=== PATIENT | female | born 1945 | race Caucasian/White ===

== ENCOUNTER 2016-08-20 17:28 | Inpatient (IN) | payer MEDICARE ==
--- NOTE | ~2016-08-20 | CN ---
Consultation Report [facility] [address] [place]. [address] NAME: DELISA BRANDT : 43 STATUS : ADM IN PAT#: [id number] AGE: 70 ADM/REG DATE : 08/20/16 MR#: [id number] REPORT SERV DATE: 08/23/16 DICTATED BY: DEWEY ELISE DATE: 08/23/16 REPORT STATUS : Draft TRANSCRIBED BY: MODLucía DATE: 08/23/16 DATE OF CONSULTATION: 08/23/2016 CHIEF COMPLAINT: Shortness of breath and left chest discomfort in a patient with a probable left parapneumonic pleural effusion. HISTORY OF PRESENT ILLNESS: Ms. Delisa Brandt is a very pleasant 70-year-old white female with a past medical history significant for previous sympathetic right-sided pleural effusion, hypertension, and chronic kidney disease, who presents to [facility]'s emergency room with complaints of worsening shortness of breath. It should be noted that Ms. Brandt has not been hospitalized recently and is usually in fairly good health. Ms. Brandt is not currently followed by a program planner. She did not usually require any supplemental oxygen. She has been recently prescribed an inhaler, but prior to this time, she was not on any pulmonary medications. She describes herself as a never smoker. She largely denies symptomatology consistent with obstructive sleep apnea. She describes her exercise tolerance prior to this recent illness as being excellent, being able to walk a city block before experiencing significant shortness of breath. Ms. Brandt states that she began feeling ill approximately two weeks ago. This manifested as shortness of breath, some wheezing, as well as a nonproductive cough. She eventually presented to her primary care physician, who provided her with a short course of antibiotics, prednisone, and an inhaler. She had some improvement in her wheezing, however, her shortness of breath persisted to such an extent that she presented to [facility]'s emergency room. Upon arrival in our emergency room, she was found to have a systolic blood pressure of 146, her temperature was 98.7, heart rate was 144, her oxygenation was 92% on 2 L. Echocardiogram was performed, which was suggestive of atrial fibrillation. She did undergo a chest x-ray, which revealed some vascular congestion as well. She has some atelectatic changes or consolidation in the left lung base. She had followup imaging, which suggested increasing effusion on the left. She also underwent an echocardiogram, which showed preserved left ventricular function, although some mbhh-ub-kvsbukyv regurg. The patient has largely improved, however, she does have an increasing effusion on the left. For the aforementioned reasons, she has been referred to the Pulmonary Service for further assessment. Currently, the patient is on room air and is largely asymptomatic at rest. She does continue to have some dyspnea with ambulation. She denies any wheezing or productive cough. She has had pneumonia once in the past. She denies any previous history of intrinsic lung disease. The patient does have a history of hypertension and dyslipidemia. She does have new-onset atrial fibrillation. She currently denies any murmurs, angina, or palpitations. She states that she did have some mild nonpitting edema prior to her presentation to the emergency Consultation Report [address] [address] NAME: DELISA BRANDT : 44 STATUS : ADM IN [facility]#: [id number] AGE: 70 ADM/REG DATE : 08/20/16 MR#: [id number] REPORT SERV DATE: 08/23/16 DICTATED BY: DEWEY ELISE DATE: 08/23/16 REPORT STATUS : Draft TRANSCRIBED BY: RUBIA DATE: 08/23/16 room. The patient states that she did have fever approximately a week ago measured as high as 101. She currently denies any rigors. She has had no nausea, vomiting, or abdominal pain. PAST MEDICAL HISTORY: 1. Exudative right pleural effusion. 2. Atrial fibrillation. 3. Hypertension. 4. Chronic kidney disease. 5. Hypothyroid, is on replacement therapy. 6. Osteoarthritis. 7. Dyslipidemia. 8. Depression. PAST SURGICAL HISTORY: 1. Cholecystectomy. 2. Total abdominal hysterectomy. 3. Bilateral total knee replacements. 4. Appendectomy. 5. ORIF of the right ankle. FAMILY HISTORY: The patient denies family history of lung disease. SOCIAL HISTORY: The patient is , with her of 50 years at bedside. They have two children who are in good health. She previously worked as a school operations manager. She states she may have had asbestos exposures in the workplace as well as in her home. She has no birds or exotic pets within the home. She knows of no issues with mold in the home. TOBACCO/ALCOHOL: As previously mentioned, Ms. Brandt is a never smoker. She has rare occasional glass of wine. MEDICATIONS: 1. Albuterol MDI. 2. Amlodipine 10 mg. 3. Aspirin 81 mg. 4. Atorvastatin 20 mg. 5. Duloxetine 60 mg. 6. Levothyroxine 88 mcg. 7. Melatonin 3 mg. ALLERGIES: THE PATIENT HAS A KNOWN ALLERGY TO PENICILLIN AND CIPROFLOXACIN, WHICH PRODUCE HIVES. REVIEW OF SYSTEMS: Consultation Report [address] [address] NAME: DELIAS BRANDT : 44 STATUS : ADM IN PAT#: [id number] AGE: 70 ADM/REG DATE : 08/20/16 MR#: [id number] REPORT SERV DATE: 08/23/16 DICTATED BY: DEWEY ELISE DATE: 08/23/16 REPORT STATUS : Draft TRANSCRIBED BY: RUBIA DATE: 08/23/16 Complete review of systems was performed with pertinent positives and negatives contained within the body of the HPI. PHYSICAL EXAMINATION: VITAL SIGNS: Blood pressure is 128/58, heart rate is 108, T-max is 96.9, respiratory rate is 16, SpO2 is 92% on room air. GENERAL: Ms. Delisa Brandt is a morbidly obese 70-year-old white female, who is not currently exhibiting any signs of acute distress. SKIN: With appropriate texture and turgor. No rashes, lesions, or ulcers. HEENT: Head, skull is normocephalic and atraumatic. Eyes, sclerae are anicteric. Ears, tragus without pain to palpation. Hearing is slightly diminished. Nose, bilateral nasal patency. Throat, the patient has dentition in good repair. NECK: Supple. Trachea midline. No cervical lymphadenopathy. THORAX/LUNGS: Thorax is symmetric with equal chest rise. Breath sounds are audible through entire field, diminished in the left lower base. CARDIOVASCULAR: Irregular rate and rhythm. No murmurs, rubs, or gallops. ABDOMEN: Soft, nondistended, and nontender. PERIPHERAL VASCULAR: No edema. MUSCULOSKELETAL: Full AROM and PROM in all joints. NEUROLOGIC: Cranial nerves 2 through 12 are grossly intact. PSYCHIATRIC: The patient demonstrates good judgment and insight. The patient is alert and oriented x3. ACCESSORY DATA: Reveals a creatinine of 1.25, procalcitonin 0.11. Urine antigens for Strep and Legionella are negative. Blood cultures negative to date. White blood cell count is 11,900, hemoglobin and hematocrit are 12.1 and 37.5. A lateral decubitus shows a seemingly free-flowing left greater than right pleural effusion. Echocardiogram reveals a left ventricular ejection fraction of 60% as well as moderate mitral regurg. IMPRESSION: 1. Community-acquired pneumonia. 2. Parapneumonic effusion. 3. New-onset atrial fibrillation. 4. Moderate mitral regurgitation. 5. Hypertension. PLAN: 1. At this time, the patient has been placed on appropriate antibiotic coverage and is clinically improving. 2. In regard to the patient's probable parapneumonic effusion, this is seemingly free flowing on chest x-ray. It may be reasonable to pursue thoracentesis for diagnostic purposes. We will refer her to our colleagues in Interventional Radiology for sampling of this fluid. We will send for the appropriate studies. The aforementioned impression and plan have been discussed with Dr. Alcala who will follow Consultation Report [address] [address] NAME: DELISA BRANDT : 44 STATUS : ADM IN PAT#: [id number] AGE: 70 ADM/REG DATE : 08/20/16 MR#: [id number] REPORT SERV DATE: 08/23/16 DICTATED BY: DEWEY ELISE DATE: 08/23/16 REPORT STATUS : Draft TRANSCRIBED BY: RUBIA DATE: 08/23/16 further recommendations. We thank you for this consult and look forward to participating in the care of Ms. Delisa Brandt. GBS/MODL Dewey Elise PA-C / [id number] CC: Vandana Dela Cruz M.D.
--- NOTE | ~2016-08-20 | ECH ---
Echocardiogram [address] [place]. [address] NAME: MIQUEL BRANDT : 44 STATUS : ADM IN PAT#: [id number] AGE: 70 ADM/REG DATE : 08/20/16 MR#: [id number] REPORT SERV DATE: 08/22/16 DICTATED BY: SHAYNA CORTEZ JR. DATE: 08/21/16 REPORT STATUS : Draft TRANSCRIBED BY: MODL DATE: 08/21/16 DATE OF ACQUISITION: 08/21/2016 ORDERING: Dr. Dixon. INDICATIONS: Tachycardia, sepsis, arrhythmia, evaluation of ejection fraction. TECH: Jamir Aniket is the RDCS. 2-D INTERPRETATION: M-mode and 2-dimensional echocardiography were performed. The left atrium was dilated 4.6 cm compared to an aortic root diameter of 3.3 cm. The left ventricle is normal in size measuring 5.2 cm in end-diastole and 3 cm in end-systole. Overall, there appeared to be normal left ventricular systolic function without obvious segmental wall motion abnormalities with ejection fraction of approximately 60%. The aortic valve was trileaflet and sclerotic. The mitral valve appeared to be minimally sclerotic. The remaining cardiac valves appeared to be structurally normal. No obvious intracardiac mass could be identified. The right ventricle did not appear to be particularly dilated. There was a trace pericardial effusion without echocardiographic evidence of hemodynamic compromise. A left pleural effusion was noted. DOPPLER/COLOR FLOW: Conventional and Doppler color flow imaging were performed. Mitral inflow patterns suggested absence of an A-wave as the patient was in atrial fibrillation. Diminished left ventricular compliance for the patient's age is suggested there was a concentric jet of sjna-at-oyfypewn mitral insufficiency. There was no significant tricuspid insufficiency. Peak gradient across the aortic valve measured 6 mmHg. There is no aortic insufficiency. CONCLUSION: NORMAL LEFT VENTRICULAR SYSTOLIC FUNCTION WITH DIMINISHED LEFT VENTRICULAR COMPLIANCE FOR THE PATIENT'S AGE. MINIMAL AORTIC VALVE SCLEROSIS WITHOUT STENOSIS. MODERATE MITRAL VALVULAR INSUFFICIENCY. TRICUSPID INSUFFICIENCY IS TRACED TO MILD, BUT THERE IS NO EVIDENCE OF PULMONARY HYPERTENSION. TRACE PERICARDIAL EFFUSION IS NOTED WHICH IS NOT HEMODYNAMICALLY SIGNIFICANT. LEFT PLEURAL EFFUSION IS VISUALIZED. /RUBIA Shayna Cortez Jr., M.D. / [id number] CC: Vandana Dela Cruz M.D.
--- NOTE | ~2016-08-20 | HP ---
History And Physical [place] [id number] [facility] [place]. [address] NAME: MIQUEL BRANDT : 43 STATUS : ADM IN [facility]#: [id number] AGE: 70 ADM/REG DATE : 08/20/16 MR#: [id number] REPORT SERV DATE: 08/20/16 DICTATED BY: MATTY BLISS DATE: 08/20/16 REPORT STATUS : Draft TRANSCRIBED BY: MODL DATE: 08/20/16 DATE OF ADMISSION: 08/20/2016 CHIEF COMPLAINT: A 70-year-old female presenting with cough, shortness of breath, rapid atrial fibrillation. HISTORY OF PRESENT ILLNESS: The patient's history was obtained through careful interview with the patient and her coupled with review of [facility] medical records. About 12 days ago, the patient was visiting her grandchildren in [place]. She went to see some recitals and concerts by her grandchildren and while spending time there, began to develop neck pain, chest pain on the lateral aspect of her right chest with a headache. She actually was worried about an atypical presentation of heart disease and went to an emergency department in [place], [place]. They did an EKG, chest x-ray, and lab work, and she was told that all this was "normal". But about 10 days ago, shortly after this episode, she noticed that she had increasing shortness of breath characterized by a prominent wheeze and a nonproductive cough. She also began to develop subjective fevers and chills. By the time she returned home on 08/15/2016, she was feeling extremely short of breath with any kind of exertion. She states "it is like someone pouring a pack of concrete at my lungs." So, she went to see her primary care physician on 08/15/2016, was told she had an upper respiratory infection, and was placed on a Z-Jamil inhaler, prednisone. She noticed that her wheeze improved, but she continued to have worsening shortness of breath. She describes slight orthopnea. No paroxysmal nocturnal dyspnea. No lower extremity edema or abdominal swelling. On the day of admission, she had such an extreme dyspnea on exertion that she was concerned about her own life, so she decided to come into the hospital. No nausea, vomiting. No lightheadedness, no palpitations, no confusion, no diarrhea or change in bowel or bladder habit. No rash, no sore throat. She does have occasional chest discomfort, described as a heaviness across the middle of her chest, 8/10 severity, exacerbated by exertion. REVIEW OF SYSTEMS: Otherwise, a 14-point review of systems was obtained, was negative. PAST MEDICAL HISTORY: 1. Chronic kidney disease. 2. Hypertension. 3. Depression. History And Physical [address] [address] NAME: MIQUEL BRANDT : 43 STATUS : ADM IN [facility]#: [id number] AGE: 70 ADM/REG DATE : 08/20/16 MR#: [id number] REPORT SERV DATE: 08/20/16 DICTATED BY: MATTY BLISS DATE: 08/20/16 REPORT STATUS : Draft TRANSCRIBED BY: RUBIA DATE: 08/20/16 4. Hypothyroidism. 5. Thoracentesis for pleural effusion. 6. Gallstone pancreatitis. 7. COPD. 8. Possible coronary artery disease with coronary artery plaque seen on CT scan, followed by Dr. Cortez. PAST SURGICAL HISTORY: 1. Left knee surgery. 2. Right ankle surgery. 3. Cholecystectomy. 4. Hysterectomy. 5. Appendectomy. ALLERGIES: PENICILLIN AND CIPRO. SOCIAL HISTORY: The patient has never smoked, has not had significant secondhand tobacco exposure either. She lives in [place], [place] with her . She drinks rare wine. They have two children; one child lives in [place], another in [place]. A total of six grandchildren. 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 FAMILY HISTORY: Diabetes. Father of a heart attack. CURRENT MEDICATIONS: Include albuterol inhaler, Norvasc 10 mg p.o. daily, aspirin 81 mg p.o. daily, Lipitor 20 mg p.o. daily, Z-Jamil, calcium and vitamin D, vitamin B12, Cymbalta 60 mg p.o. daily, levothyroxine 88 mcg p.o. daily, magnesium 400 mg p.o. daily, melatonin 3 mg p.o. at bedtime. PHYSICAL EXAMINATION: VITAL SIGNS: Temperature 98.7, pulse 144, blood pressure 146/90, respiratory rate 24, O2 saturation 92% on 2 L nasal cannula, 86% on room air. GENERAL: An ill-appearing female, in evidence of some distress secondary to shortness of breath. HEENT: Pupils equal, round, and reactive to light. No conjunctival pallor. No scleral icterus. Nares are patent. Oropharynx is clear of obstruction. Moist mucous membranes. NECK: Trachea midline. No thyromegaly. LYMPH: No cervical lymphadenopathy. No supraclavicular lymphadenopathy. RESPIRATORY: The patient has wet rales at the base of lungs but also some diminished breath sounds at the base of lungs. No dullness to percussion to suggest effusion. I do appreciate a slight egophony at the base of lungs bilaterally. No active wheezes. The patient has a labored respiratory effort. CARDIOVASCULAR: Tachycardic irregularly irregular. No murmurs, rubs, or gallops. No current extremity edema is appreciated. ABDOMEN: Soft, nontender, nondistended. Normal bowel sounds auscultated throughout. No hepatosplenomegaly. DERMATOLOGICAL: Warm and dry. History And Physical [address] [address] NAME: MIQUEL BRANDT : 43 STATUS : ADM IN [facility]#: [id number] AGE: 70 ADM/REG DATE : 08/20/16 MR#: [id number] REPORT SERV DATE: 08/20/16 DICTATED BY: MATTY BLISS DATE: 08/20/16 REPORT STATUS : Draft TRANSCRIBED BY: RUBIA DATE: 08/20/16 EXTREMITIES: No pallor. No cyanosis. PSYCHIATRIC: Normal affect. Good mood. Alert and oriented x3. LABORATORY DATA: White blood cell count 14.2, hemoglobin 14, hematocrit 42, platelets 525. Sodium 142, potassium 4.4, chloride 107, bicarb 31, BUN 21, creatinine 1.17. Glucose 105. Brain natriuretic peptide 256. Troponin negative. INR 1.2. STUDIES: 1. Chest x-ray by my own evaluation shows bilateral infiltrates, perhaps the right more pronounced than the left. There are also jbhml-ax-dxczgjsm sized bilateral pleural effusions. 2. EKG by my own evaluation shows rapid atrial fibrillation. ASSESSMENT AND PLAN: 1. Sepsis with subjective fevers and chills, white blood cell count of 14.2, tachycardia, tachypnea, hypoxia. Check blood cultures. Place on appropriate IV antibiotics. Check lactic acid. 2. Pneumonia, check blood cultures. Place on IV antibiotics. 3. Rapid atrial fibrillation, new onset. Check telemetry. Check echocardiogram. Place on a Cardizem drip IV. Check thyroid. Consult the patient's cad designer, Dr. Cortez. Consider anticoagulation. 4. Hypoxic respiratory failure. Provide supportive care. 5. Volume overload, tesh-fe-fknbjuff with pulmonary rales on exam, but not too severe. No third-spacing or lower extremity edema. We will try p.o. Lasix and monitor closely. Check an echocardiogram. KPL/MODL Matty Bliss M.D. / [id number] CC: MD Carin Ha M.D.
--- NOTE | ~2016-08-20 | CN ---
Consultation Report [facility] [address] [place]. [address] NAME: MIQUEL BRANDT : 43 STATUS : ADM IN [facility]#: [id number] AGE: 70 ADM/REG DATE : 08/20/16 MR#: [id number] REPORT SERV DATE: 08/21/16 DICTATED BY: SHAYNA CORTEZ JR. DATE: 08/21/16 REPORT STATUS : Draft TRANSCRIBED BY: RUBIA DATE: 08/21/16 CONSULTATION DATE OF CONSULTATION: REASON FOR CONSULTATION: Palpitations and atrial fibrillation. HISTORY OF PRESENT ILLNESS: The patient is a 70-year-old white female, with no prior history of atrial fibrillation, who presented walking into the ED, after having seen her primary in the past week with worsening bronchitis, diagnosed with community-acquired pneumonia, with fevers, chills, but no rigors. Cough has worsened over the past week, it has been scant, and now is more productive. She was noted to have a pulse of 144 beats per minute. EKG was notable for atrial fibrillation with rapid ventricular rate. Currently, she denies any chest pain, anginal symptoms. She denies any orthopnea, PND, or pedal edema. REVIEW OF SYSTEMS: A 10-point review of systems, otherwise, unremarkable. ALLERGIES: ALLERGIES ARE TO PENICILLIN AND CIPROFLOXACIN. HOME MEDICATIONS: ProAir HFA, amlodipine, aspirin, atorvastatin, azithromycin, calcium, Cyanocobalamin, Cymbalta, levothyroxine, magnesium, and melatonin. PAST MEDICAL HISTORY: Notable for history of hypertension, obesity, CKD, depression, hypothyroidism, chronic arthritis, but no prior history of heart disease. PAST SURGICAL HISTORY: Otherwise unremarkable. SOCIAL HISTORY: Notable for absence of tobacco or ethanol use. FAMILY HISTORY: Notable for heart disease. PHYSICAL EXAMINATION: VITAL SIGNS: Blood pressure is 146/90, temperature is 98.7, pulse 144, respirations 24, pulse oximetry 92%. HEENT: Unremarkable. NECK: Supple without jugular venous distention. CARDIOVASCULAR: Regular rate and regular rhythm. LUNGS: Diminished in the bases. ABDOMEN: Benign without hepatomegaly. EXTREMITIES: 1+ with no pedal edema. NEUROLOGIC: She is grossly intact. LABORATORY DATA: Sodium 139, potassium 4.7, chloride 107, BUN 20, creatinine 1.28. GFR of Consultation Report [place] [id number] [place]. [address] NAME: MIQUEL BRANDT : 43 STATUS : ADM IN PAT#: [id number] AGE: 70 ADM/REG DATE : 08/20/16 MR#: [id number] REPORT SERV DATE: 08/21/16 DICTATED BY: SHAYNA CORTEZ JR. DATE: 08/21/16 REPORT STATUS : Draft TRANSCRIBED BY: MODL DATE: 08/21/16 49, glucose 156, calcium 8.6, magnesium 2.3. H and H of 12.6 and 39.3, white count of 14.8, and platelet count of 461, troponin less than 0.02 x2. BNP 249, TSH of 0.361. Chest x-ray interpretation is pending. EKG is notable for atrial fibrillation with rapid ventricular rate, delayed R-wave progression, nonspecific ST-T wave abnormality. IMPRESSION: 70-year-old white female, with elevated CHADS-VASc 2 score, with lower HAS-BLED score, with recent onset atrial fibrillation. PLAN AND RECOMMENDATIONS: 1. Discontinuation of amlodipine and initiation of diltiazem. 2. Eliquis 5 mg p.o. b.i.d. 3. Digoxin 0.125 mg daily. 4. I would refrain from nuclear stress testing versus other modality until the pneumonia has cleared. 5. May obtain echo during hospital admission. 6. Cardiac risk factor reduction. 7. Plans for anticipated outpatient cardioversion. /RUBIA Shayna Cortez Jr., M.D. / [id number] CC: Vandana Dela Cruz M.D.
--- NOTE | ~2016-08-20 | DS ---
Discharge Summary [facility] [address] [place] [address] NAME: MIQUEL BRANDT : 43 STATUS : DIS IN PAT#: [id number] AGE: 70 ADM/REG DATE : 08/20/16 MR#: [id number] REPORT SERV DATE: 08/26/16 DICTATED BY: MUKESH MADRIGAL DATE: 08/25/16 REPORT STATUS : Draft TRANSCRIBED BY: MODL DATE: 08/25/16 ADMISSION DATE: 08/20/2016 DISCHARGE DATE: 08/25/2016 DISCHARGE DIAGNOSES: 1. Sepsis. 2. Pneumonia. 3. Exudative parapneumonic effusion. 4. Atrial fibrillation with rapid ventricular response. 5. Acute hypoxemic respiratory failure. 6. Volume overload associated with present illness. 7. Hypertension. 8. Chronic kidney disease 3. 9. Monoclonal gammopathy, new diagnosis, IgA lambda, negative urine immunofixation, normal quantitative immunoglobulins, serum free light chains pending. Further outpatient followup and evaluation needed. 10.Hypothyroid, on Synthroid replacement. 11.Depression and anxiety, on treatment. 12.Coronary artery disease by previous CT with negative stress imaging in the past. 13.B12 deficiency, on replacement. OPERATIONS AND PROCEDURES: Ultrasound-guided left thoracentesis, 08/24/2016. PRESENT ILLNESS: This is a 70-year-old white female who was triaged in the emergency room on 08/20/2016 at 1728 hours complaining of extreme shortness of breath. Admission vital signs: Blood pressure 146/90, temperature 98.7, pulse 144, respirations 24, and O2 saturation 92% on 2 L. After evaluation in the emergency room, she was thought to have sepsis with pneumonia. She was referred to the Hospitalist Service. She was seen by Dr. Darshan Dixon and admitted as described on admission history and physical examination. Additional history included neck and chest pain 12 days prior to admission while visiting grandchildren in [place]. She was seen in an emergency room in [place], [place], evaluated and discharged. About 48 hours after that episode, she developed increasing shortness of breath with wheezing and a nonproductive cough with subjective fever and chills. On 08/15/2016, she saw her primary care physician and was placed on a Z-Jamil, inhaler, and prednisone. Her wheezing improved, but her other symptoms progressed and she came to the emergency room. ADDITIONAL HISTORY: Per Dr. Dixon. PHYSICAL EXAMINATION: Per Dr. Dixon. Discharge Summary [address] [place]. [address] NAME: MIQUEL BRANDT : 43 STATUS : DIS IN PAT#: [id number] AGE: 70 ADM/REG DATE : 08/20/16 MR#: [id number] REPORT SERV DATE: 08/26/16 DICTATED BY: MUKESH MADRIGAL DATE: 08/25/16 REPORT STATUS : Draft TRANSCRIBED BY: MODLucía DATE: 08/25/16 ADMISSION LABORATORY: Per Dr. Dixon. HOSPITAL COURSE: She was admitted by Dr. Dixon with: 1. Sepsis. 2. Pneumonia. 3. Rapid atrial fibrillation, new onset. 4. Hypoxemic respiratory failure. 5. Volume overload. She was admitted to [address] [place] [address]. Cultures were obtained. She was started on Rocephin and Zithromax. She was placed on a Cardizem drip. She was given O2 and bronchodilator therapy. Lasix was given. Cardiology consultation was obtained with her die designer, Dr. Cortez. Her hospitalist care was assumed by the undersigned. Dr. Cortez thought that she had an elevated CHADSVASc score with a lower HAS-BLED score and suggested discontinuation of home amlodipine with initiation of diltiazem, Eliquis, Lanoxin, and no stress testing at this time. An echocardiogram was done and interpreted by Dr. Cortez. This showed normal left ventricular systolic function with diminished left ventricular compliance. There was minimal aortic valve sclerosis without stenosis. There was moderate mitral valvular insufficiency with trace to mild tricuspid insufficiency. Trace pericardial effusion was noted, not thought to be hemodynamically significant. A left pleural effusion was visualized. She was transitioned from IV to p.o. Cardizem. Additional Lanoxin was given. On 08/24/2016, she converted from atrial fibrillation to sinus rhythm and remained in sinus rhythm through discharge. There were no evident embolic phenomena associated with this. With the above-mentioned therapy, there was slow but steady improvement in her cough and dyspnea. Procalcitonin was 0.11 on 08/21/2016. C-reactive protein was 57 on 08/21/2016 and 19.3 on 08/23/2016. Urine streptococcal and Legionella antigens were negative. Blood cultures obtained on admission were no growth. A followup chest x-ray showed an increased left pleural effusion. Pulmonary consultation was obtained. She was seen by Valdo Azul and Dr. Alcala. Thoracentesis was recommended. This was done on 08/24/2016 by Interventional Radiology under ultrasound guidance after holding her Eliquis. Pleural fluid obtained was 660 mL that was pink. Protein was 3.8 with a serum protein of 6.9, LDH 232 with a serum LDH of 169. Fluid was thought to be exudative. AFB culture is pending. Routine Gram stain, few WBCs, no organisms and culture was no growth at one day. Discharge Summary [facility] [id number] [place]. [address] NAME: MIQUEL BRANDT : 43 STATUS : DIS IN PAT#: [id number] AGE: 70 ADM/REG DATE : 08/20/16 MR#: [id number] REPORT SERV DATE: 08/26/16 DICTATED BY: MUKESH MADRIGAL DATE: 08/25/16 REPORT STATUS : Draft TRANSCRIBED BY: RUBIA DATE: 08/25/16 With this procedure, there was additional improvement in her dyspnea. Her admission lab work demonstrated an elevated globulin of 4.2. This was further evaluated with serum protein electrophoresis that demonstrated abnormal band in the gamma region. Serum immunofixation showed a monoclonal IgA lambda protein. Urine immunofixation was normal. Serum quantitative immunoglobulin is normal with G of 971, A of 382, and M of 59. Free light chains are pending. Further outpatient followup and evaluation will be needed. On 08/25/2016, she had minimal cough and no dyspnea. She was eating without diarrhea. She was stronger. A chest x-ray post thoracentesis showed only small bilateral pleural effusions with resolved left basilar consolidation. At this point in her hospitalization, it was felt she had achieved a level of improvement and stability where she can be safely discharged home to follow up with Dr. Seymour in one week with a chest x-ray. Free light chain should be available at that time for decision regarding further monoclonal gammopathy evaluation with bone survey, bone marrow or formal oncology evaluation. She will also follow up with Dr. Cortez in one to two weeks. She will continue her home diet and activity. DISCHARGE MEDICATIONS: Os-Elías plus D 500 mg daily, Lanoxin 0.125 mg daily, Cardizem CD 360 mg daily, Cymbalta 60 mg daily, Synthroid 88 mcg daily, magnesium oxide 400 mg daily, Eliquis 5 mg twice daily (advised to report any bleeding and have anatomic area evaluated if same should occur), aspirin 81 mg daily, Lipitor 20 mg daily, B12 500 mcg daily, Apresoline 25 mg three times daily, ProAir two puffs every 6 hours as needed, melatonin 3 mg at bedtime as needed, Ceftin 500 mg twice daily for 8 days, noting 5 doses of Zithromax 500 mg IV while hospitalized and 6 doses of Rocephin 2 g while hospitalized. Florastor twice daily for the next 30 days. Discharge time greater than 30 minutes. DICTATED BY: Mukesh Madrigal M.D. DD/RUBIA Mukesh Madrigal M.D. / [id number] CC: Discharge Summary [address] [address] NAME: MIQUEL BRANDT : 43 STATUS : DIS IN PAT#: [id number] AGE: 70 ADM/REG DATE : 08/20/16 MR#: [id number] REPORT SERV DATE: 08/26/16 DICTATED BY: MUKESH MADRIGAL DATE: 08/25/16 REPORT STATUS : Draft TRANSCRIBED BY: MODL DATE: 08/25/16 Vandana Dela Cruz M.D. Dannis Hood Jr., M.D.
[~2016-08-20 17:28] MED LIST: ACTOS15 PO; C5; CALTRA600D PO; CELEBREX2 PO; DCN100 PO; DIL2TAB PO; DIOVAN HCT160 MG/25 PO; LEVOTHYROXIN125 MCG PO; LIPITOR20 PO; MAGOX4 PO; NORV10 PO; OS500+D PO; PAXIL30 MG PO; PR25 PO; PROTONIX PO; ROXICET1 TAB PO; SEPTRA1 TAB PO; SYN125 PO; TRAZ50 PO; ZANTAC 75 PO
[2016-08-20 18:05] LABS: BASOPHILS 0.8 %; BASOPHILS ABSOLUTE 0.11 10/3/uL (0.0-0.16); EOSINOPHILS 2.7 %; EOSINOPHILS ABSOLUTE 0.38 10/3/uL (0.0-0.53); HEMATOCRIT 41.8 % (36.0-48.0); HEMOGLOBIN 13.7 g/dL (12.0-16.0); IMMATURE GRANULOCYTES 0.4 %; IMMATURE GRANULOCYTES ABSOLUTE 0.05 10/3/uL (0.0-0.11); LYMPHOCYTES 18.1 %; LYMPHOCYTES ABSOLUTE 2.57 10/3/uL (0.67-4.30); MEAN CORPUS HGB CONC 32.8 g/dL (32.0-36.0); MEAN CORPUSCULAR HEMOGLOB 29.5 pg (26.0-34.0); MEAN PLATELET VOLUME 8.9 fL (9.2-13.0); MONOCYTES ABSOLUTE 1.42 10/3/uL (0.21-1.20); RBC DISTRIBUTION WIDTH 12.6 % (12.0-16.0); RED CELL COUNT 4.65 10/6/uL (4.0-5.6)
[2016-08-20 18:06] LABS: MANUAL DIFF NO %; MEAN CORPUSCULAR VOLUME 89.9 fL (80-100); PLATELET COUNT 525 10/3/uL (150-400); WHITE BLOOD CELLS 14.2 10/3/uL (4.5-10.5)
[2016-08-20 18:12] LABS: INTERNATIONAL NORMAL RATI 1.2 UNITS (-); PARTIAL THROMBO TIME 30.9 SEC (22.5-37.2); PROTIME (NOT ORD) 14.7 SEC (12.0-14.5)
[2016-08-20 18:24] LABS: BUN (BLOOD UREA NITROGEN) 21 MG/DL (6-23); CALCIUM, SERUM 8.4 MG/DL (8.5-10.4); CHEST PAIN PROFILE TAT 0 Hrs 24 Mins; CHLORIDE, SERUM 107 MMOL/L (96-112); CO2 (CARBON DIOXIDE) 31 MMOL/L (24-34); CREATININE 1.17 MG/DL (0.55-1.02); GFR AFRICAN AMERICAN 54 ML/MIN (>=60); GFR NON AFRICAN AMERICAN 47 ML/MIN (>=60); GLUCOSE, SERUM 105 MG/DL (60-99); POTASSIUM, SERUM 4.4 MMOL/L (3.5-5.3); SODIUM, SERUM 142 MMOL/L (135-148); TROPONIN I <0.02 NG/ML (<0.05)
[2016-08-20] MEDS ORDERED: LIPITOR20 PO (19:40)
[2016-08-20] MEDS ORDERED: Z-PAK PO (19:41)
[2016-08-20] MEDS ORDERED: PROAIR HFA INH (19:41)
[2016-08-20] MEDS ORDERED: ASAB PO (19:42)
[2016-08-20] MEDS ORDERED: CYMBALTA60 PO (19:42)
[2016-08-20] MEDS ORDERED: NORV10 PO (19:42)
[2016-08-20] MEDS ORDERED: LEVOTHYROXIN88 MCG PO (19:42)
[2016-08-20] MEDS ORDERED: OS500+D PO (19:43)
[2016-08-20] MEDS ORDERED: B12250T PO (19:43)
[2016-08-20] MEDS ORDERED: MELA3 PO (19:43)
[2016-08-20] MEDS ORDERED: MAGOX4 PO (19:43)
[2016-08-21 04:54] LABS: INTERNATIONAL NORMAL RATI 1.2 UNITS (-); PARTIAL THROMBO TIME 35.1 SEC (22.5-37.2); PROTIME (NOT ORD) 14.8 SEC (12.0-14.5)
[2016-08-21 04:59] LABS: BASOPHILS 0.1 %; BASOPHILS ABSOLUTE 0.02 10/3/uL (0.0-0.16); EOSINOPHILS 0 %; HEMATOCRIT 39.3 % (36.0-48.0); HEMOGLOBIN 12.6 g/dL (12.0-16.0); IMMATURE GRANULOCYTES 0.3 %; IMMATURE GRANULOCYTES ABSOLUTE 0.05 10/3/uL (0.0-0.11); LYMPHOCYTES 9.4 %; MEAN CORPUS HGB CONC 32.1 g/dL (32.0-36.0); MEAN CORPUSCULAR HEMOGLOB 28.4 pg (26.0-34.0); MEAN CORPUSCULAR VOLUME 88.7 fL (80-100); MEAN PLATELET VOLUME 8.8 fL (9.2-13.0); MONOCYTES 1.6 %; MONOCYTES ABSOLUTE 0.24 10/3/uL (0.21-1.20); NEUTROPHILS 88.6 %; NEUTROPHILS ABSOLUTE 13.12 10/3/uL (2.02-8.40); PLATELET COUNT 461 10/3/uL (150-400); RBC DISTRIBUTION WIDTH 12.6 % (12.0-16.0); RED CELL COUNT 4.43 10/6/uL (4.0-5.6); WHITE BLOOD CELLS 14.8 10/3/uL (4.5-10.5)
[2016-08-21 05:00] LABS: MANUAL DIFF NO %
[2016-08-21 05:11] LABS: CALCIUM, SERUM 8.6 MG/DL (8.5-10.4); CHLORIDE, SERUM 107 MMOL/L (96-112); CREATININE 1.28 MG/DL (0.55-1.02); FREE T4 1.46 NG/DL (0.76-1.46); GFR AFRICAN AMERICAN 49 ML/MIN (>=60); GFR NON AFRICAN AMERICAN 42 ML/MIN (>=60); POTASSIUM, SERUM 4.7 MMOL/L (3.5-5.3); SGOT(AST) 16 U/L (5-40); SGPT(ALT) 22 U/L (5-65); SODIUM, SERUM 139 MMOL/L (135-148); TOTAL BILIRUBIN 0.4 MG/DL (0-1.2); TROPONIN I <0.02 NG/ML (<0.05)
[2016-08-21 05:12] LABS: A/G RATIO 0.7 (0.7-1.9); ALBUMIN 2.8 G/DL (3.5-5.0); ALKALINE PHOSPHATASE 88 U/L (45-117); BUN (BLOOD UREA NITROGEN) 28 MG/DL (6-23); CO2 (CARBON DIOXIDE) 25 MMOL/L (24-34); GLOBULIN 4.2 G/DL (2.5-4.1); GLUCOSE, SERUM 156 MG/DL (60-99); ULTRASENSITIVE TSH 0.361 MCIU/ML (0.358-3.740)
[2016-08-21 05:48] LABS: PROCALCITONIN 0.11 ng/mL (<0.5)
[2016-08-21 17:33] LABS: T PROTEIN (ELECT)(NOT OR 6.9 G/DL (6.0-8.5)
[2016-08-22 04:13] LABS: BASOPHILS 0.2 %; BASOPHILS ABSOLUTE 0.04 10/3/uL (0.0-0.16); EOSINOPHILS 0.5 %; EOSINOPHILS ABSOLUTE 0.08 10/3/uL (0.0-0.53); HEMATOCRIT 37.7 % (36.0-48.0); HEMOGLOBIN 12.2 g/dL (12.0-16.0); IMMATURE GRANULOCYTES 0.4 %; IMMATURE GRANULOCYTES ABSOLUTE 0.07 10/3/uL (0.0-0.11); LYMPHOCYTES 15.9 %; MEAN CORPUS HGB CONC 32.4 g/dL (32.0-36.0); MEAN CORPUSCULAR HEMOGLOB 28.6 pg (26.0-34.0); MEAN CORPUSCULAR VOLUME 88.5 fL (80-100); MEAN PLATELET VOLUME 8.9 fL (9.2-13.0); MONOCYTES 7.3 %; NEUTROPHILS 75.7 %; NEUTROPHILS ABSOLUTE 12.39 10/3/uL (2.02-8.40); PLATELET COUNT 501 10/3/uL (150-400); RBC DISTRIBUTION WIDTH 12.7 % (12.0-16.0); RED CELL COUNT 4.26 10/6/uL (4.0-5.6); WHITE BLOOD CELLS 16.4 10/3/uL (4.5-10.5)
[2016-08-22 04:15] LABS: MANUAL DIFF NO %
[2016-08-22 04:18] LABS: CALCIUM, SERUM 8.7 MG/DL (8.5-10.4); CHLORIDE, SERUM 105 MMOL/L (96-112); CO2 (CARBON DIOXIDE) 28 MMOL/L (24-34); CREATININE 1.29 MG/DL (0.55-1.02); GFR AFRICAN AMERICAN 48 ML/MIN (>=60); GFR NON AFRICAN AMERICAN 42 ML/MIN (>=60); GLUCOSE, SERUM 125 MG/DL (60-99); POTASSIUM, SERUM 4.2 MMOL/L (3.5-5.3); SODIUM, SERUM 140 MMOL/L (135-148)
[2016-08-22 04:22] LABS: BUN (BLOOD UREA NITROGEN) 32 MG/DL (6-23)
[2016-08-22 11:25] LABS: A/G 0.97 RATIO (0.9-2.10); ABNORMAL PEAK 1 0.07 G/DL; ABNORMAL PEAK 1 % 1.1 % (0); ALB RELATIVE % 49.2 % (60.0-89.0); ALBUMIN (ELECTRO) 3.39 GM/DL (3.2-5.5); ALPHA 1 RELAT % (NOT ORD) 4.4 % (1.0-4.0); ALPHA 2 RELAT % 15.9 % (4.5-26.0); BETA GLOBULIN (SPE) 0.88 GM/DL (0.60-1.30); BETA RELATIVE % 12.8 % (9.0-22.0); GAMMA GLOBULIN (SPE) 1.22 G/DL (0.70-1.60); GAMMA RELAT % 17.7 % (6.0-22.0)
[2016-08-22 19:40] LABS: IMMUNOGLOBULIN A 382 MG/DL (70-420); IMMUNOGLOBULIN G 971 MG/DL (673-1464); IMMUNOGLOBULIN M 59 MG/DL (30-270)
[2016-08-23 06:22] LABS: BASOPHILS 0.7 %; BASOPHILS ABSOLUTE 0.08 10/3/uL (0.0-0.16); EOSINOPHILS 3.4 %; HEMATOCRIT 37.5 % (36.0-48.0); HEMOGLOBIN 12.1 g/dL (12.0-16.0); IMMATURE GRANULOCYTES 0.5 %; IMMATURE GRANULOCYTES ABSOLUTE 0.06 10/3/uL (0.0-0.11); LYMPHOCYTES 23.1 %; LYMPHOCYTES ABSOLUTE 2.74 10/3/uL (0.67-4.30); MANUAL DIFF NO %; MEAN CORPUS HGB CONC 32.3 g/dL (32.0-36.0); MEAN CORPUSCULAR HEMOGLOB 28.7 pg (26.0-34.0); MEAN CORPUSCULAR VOLUME 89.1 fL (80-100); MEAN PLATELET VOLUME 9.2 fL (9.2-13.0); MONOCYTES 9.2 %; MONOCYTES ABSOLUTE 1.09 10/3/uL (0.21-1.20); NEUTROPHILS 63.1 %; NEUTROPHILS ABSOLUTE 7.51 10/3/uL (2.02-8.40); PLATELET COUNT 541 10/3/uL (150-400); RBC DISTRIBUTION WIDTH 12.8 % (12.0-16.0); RED CELL COUNT 4.21 10/6/uL (4.0-5.6); WHITE BLOOD CELLS 11.9 10/3/uL (4.5-10.5)
[2016-08-23 06:32] LABS: BUN (BLOOD UREA NITROGEN) 30 MG/DL (6-23); C-REACTIVE PROTEIN 19.3 MG/L (<8.0); CALCIUM, SERUM 8.7 MG/DL (8.5-10.4); CHLORIDE, SERUM 104 MMOL/L (96-112); CO2 (CARBON DIOXIDE) 24 MMOL/L (24-34); CREATININE 1.25 MG/DL (0.55-1.02); GFR AFRICAN AMERICAN 50 ML/MIN (>=60); GFR NON AFRICAN AMERICAN 43 ML/MIN (>=60); GLUCOSE, SERUM 108 MG/DL (60-99); SODIUM, SERUM 137 MMOL/L (135-148)
[2016-08-23 13:43] LABS: DIGOXIN 1.1 NG/ML (0.8-2.0)
[2016-08-24 07:04] LABS: BASOPHILS 0.8 %; BASOPHILS ABSOLUTE 0.08 10/3/uL (0.0-0.16); EOSINOPHILS 3.2 %; EOSINOPHILS ABSOLUTE 0.34 10/3/uL (0.0-0.53); HEMATOCRIT 38.9 % (36.0-48.0); HEMOGLOBIN 12.8 g/dL (12.0-16.0); IMMATURE GRANULOCYTES 0.6 %; IMMATURE GRANULOCYTES ABSOLUTE 0.06 10/3/uL (0.0-0.11); LYMPHOCYTES 20.7 %; LYMPHOCYTES ABSOLUTE 2.18 10/3/uL (0.67-4.30); MEAN CORPUS HGB CONC 32.9 g/dL (32.0-36.0); MEAN CORPUSCULAR VOLUME 88.2 fL (80-100); MEAN PLATELET VOLUME 9.1 fL (9.2-13.0); MONOCYTES ABSOLUTE 0.74 10/3/uL (0.21-1.20); NEUTROPHILS 67.7 %; NEUTROPHILS ABSOLUTE 7.15 10/3/uL (2.02-8.40); PLATELET COUNT 509 10/3/uL (150-400); RBC DISTRIBUTION WIDTH 12.6 % (12.0-16.0); RED CELL COUNT 4.41 10/6/uL (4.0-5.6); WHITE BLOOD CELLS 10.6 10/3/uL (4.5-10.5)
[2016-08-24 07:06] LABS: MANUAL DIFF NO %
[2016-08-24 07:09] LABS: INTERNATIONAL NORMAL RATI 1.3 UNITS (-); PROTIME (NOT ORD) 15.9 SEC (12.0-14.5)
[2016-08-24 07:16] LABS: TOTAL PROTEIN 6.9 G/DL (6.0-8.5)
[2016-08-24 15:19] LABS: GLUCOSE BODY FL (NOT ORD) 116 MG/DL; LDH BODY FLUID (NOT ORD) 232 U/L; PROTEIN BODY FLUID 3.8 G/DL
[2016-08-24 15:56] LABS: BD FL LYMPH (NOT ORD) 87 %; BD FL SOURCE (NOT ORD) THORACENTESIS; BF BASO (NOT OF) 1 %; BF LARGE MONONUCLEAR 7 %; BODY FLUID EOS (NOT ORD) 0 %; BODY FLUID SEG (NOT ORD) 5 %
[2016-08-24 15:57] LABS: BD FL SOURCE (NOT ORD) THORACENTESIS
[2016-08-24 16:14] LABS: BF TOTAL CELL CT (NOT ORD 1007 /MM3; BODY FLUID RBC (NOT ORD) 10612 /MM3
[2016-08-25] MEDS ORDERED: LAN125 PO (14:15)
[2016-08-25] MEDS ORDERED: CARDCD360 PO (14:16)
[2016-08-25] MEDS ORDERED: ELIQUIS 5 MG TAB5 MG PO (14:17)
[2016-08-25] MEDS ORDERED: HALF81 PO (14:18)
[2016-08-25] MEDS ORDERED: CEFT5 PO (14:19)
[2016-08-25] MEDS ORDERED: APRES25 PO (14:19)
[2016-08-25] MEDS ORDERED: FLORASTOR250 MG PO (14:20)
== END 2016-08-25 15:23 | disposition home or self-care (01) | DRG 871 ==
LOC: ER 17:28 → 6NO 19:46
PROVIDERS: Hospitalist; Internal Medicine; Internal Medicine Cardiovascular Disease; Physician Assistant; Physician Assistant Medical
PROC: 0W9B3ZX Drainage of Left Pleural Cavity, Percutaneous Approach, Diagnostic (ICD-10-PCS; principal; 2016-08-24)
DX: A41.9 Sepsis, unspecified organism (principal); J18.9 Pneumonia, unspecified organism; J96.01 Acute respiratory failure with hypoxia; I48.91 Unspecified atrial fibrillation; J91.8 Pleural effusion in other conditions classified elsewhere; E87.70 Fluid overload, unspecified; N18.3 Chronic kidney disease, stage 3 (moderate); D47.2 Monoclonal gammopathy; M19.90 Unspecified osteoarthritis, unspecified site; E03.9 Hypothyroidism, unspecified; I12.9 Hypertensive chronic kidney disease with stage 1 through stage 4 chronic kidney disease, or unspecified chronic kidney disease; F32.9 Major depressive disorder, single episode, unspecified; F41.9 Anxiety disorder, unspecified; I34.0 Nonrheumatic mitral (valve) insufficiency; E53.8 Deficiency of other specified B group vitamins; I25.10 Atherosclerotic heart disease of native coronary artery without angina pectoris; Z79.02 Long term (current) use of antithrombotics/antiplatelets; Z96.653 Presence of artificial knee joint, bilateral; Z90.49 Acquired absence of other specified parts of digestive tract; Z77.090 Contact with and (suspected) exposure to asbestos
CPT/HCPCS: 32555; 71010; 71020; 71035; 80048; 80053; 80162; 82784; 82945; 83605; 83615; 83735; 83880; 83883; 83883-59; 83986; 84145; 84155; 84157; 84165; 84439; 84443; 84484; 85025; 85610; 85730; 86140; 86334; 86335; 87015; 87040; 87070; 87116; 87205; 87449; 88112; 88305; 89051; 93005; 93306; 94640; 99285; A9270-GY; J0456; J1160; J1940